=== PATIENT | female | born 1950 | race Caucasian/White ===

== ENCOUNTER 2019-12-19 09:23 | Outpatient (CLI) | payer OTHER, SELFPAY ==
--- NOTE | 2019-12-19 13:05 | PFTS_ITS ---
Date of Study:12/19/19 Date of Dictation: MECHANICS: Forced vital capacity (FVC) is reduced. Forced expiratory volume in one second (FEV1) is reduced. FEV1/FVC is reduced. FLOW VOLUME LOOP: Reduced flow at all lung volumes with significant scooping. LUNG VOLUMES: Total lung capacity (TLC) is increased. Residual volume (RV) is increased. DIFFUSING CAPACITY FOR CARBON MONOXIDE: Severely diminished. INTERPRETATION: The pulmonary function tests are consistent with very severe airflow obstruction. There is significant postbronchodilator response. Lung volumes are consistent with hyperinflation and air trapping. Gas exchange (DLCO) is severely diminished. MTDD
== END 2019-12-19 09:24 | disposition home or self-care (01) ==
LOC: RT 09:26
PROVIDERS: PCP Nurse Practitioner; Visit Provider Nurse Practitioner
DX: J44.9 Chronic obstructive pulmonary disease, unspecified (principal)
CPT/HCPCS: 94060; 94726; 94729; J7611

== ENCOUNTER → 2020-03-21 08:39 | Outpatient (BNVA) | payer OTHER, SELFPAY | PROVIDERS: PCP Nurse Practitioner; Visit Provider Internal Medicine | DX: Z11.59 Encounter for screening for other viral diseases (principal) | CPT/HCPCS: 87635 ==

== ENCOUNTER 2020-03-25 11:00 | Outpatient (CLI) | payer MEDICARE, SELFPAY | END 2020-03-25 11:01 | disposition home or self-care (01) | LOC: SLEEP 03-26 15:32 | PROVIDERS: PCP Nurse Practitioner; Visit Provider Internal Medicine Critical Care Medicine | DX: J44.9 Chronic obstructive pulmonary disease, unspecified (principal) | CPT/HCPCS: 94762 ==

== ENCOUNTER 2020-04-16 12:44 | Outpatient (CLI) | payer MEDICARE, SELFPAY ==
--- NOTE | 2020-04-16 12:49 | CT_ITS ---
WS: [id number] LDCT LUNG CANCER SCREENING HISTORY: H/O TOBACCO USE TECHNIQUE: Axial imaging performed from the apices to 1 cm below the costophrenic angles. Coronal and sagittal reformats are submitted with axial MIP series. All CT scans at [facility] use at least one of these dose optimization techniques: automated exposure control; mA and/or kV adjustment per patient size (includes targeted exams where dose is matched to clinical indication); or iterativ e reconstruction. DLP: 56.04 mGy.cm DIvol: 1.52 mGy COMPARISON: None available. Diagnostic quality: Satisfactory Lung Nodules: No pulmonary nodules or mass identified. Linear areas of scarring and fibrosis at the l noel bases. Additional subsegmental atelectasis in the RIGHT middle lobe. No endobronchial lesions. Lungs: Severe emphysema. Heart: Normal size heart. No pericardial effusion. Other findings: Small mediastinal and hilar lymph nodes. Moderate atherosclerosis aorta. Mild dilatat ion of the pulmonary artery. Small hiatal hernia. Anterior compression fracture L1, 10%. CT/CT lung screening [id number] IMPRESSION: LUNG-RADS: 1-Negative FOLLOW UP: 12 Month: Continue annual screening with LDCT OTHER FINDINGS (S MODIFIER): None.
== END 2020-04-16 12:45 | disposition home or self-care (01) ==
LOC: CT 12:45
PROVIDERS: PCP Nurse Practitioner; Visit Provider Internal Medicine Critical Care Medicine
DX: Z12.2 Encounter for screening for malignant neoplasm of respiratory organs (principal); Z87.891 Personal history of nicotine dependence
CPT/HCPCS: G0297

== ENCOUNTER 2020-08-07 07:53 | Outpatient (CLI) | payer MEDICARE, SELFPAY ==
--- NOTE | 2020-08-07 08:31 | NMCV_ITS ---
NM kodi perf SPECT r/s* [id number] Katerni Andrade Age: 70 Gender: F : 1950 Exam Date: 08/07/2020 08:31 Ordering Phys: Ciro Galvan MD Technologist: ESAU Reyes Exam Location: [facility] Indications: Chest pain STRESS TEST Please see separate stress test report in [facility] for full findings IMAGE PROTOCOL Rest/Stress 1 Lexiscan Day Radiopharmaceutical Dose (mCi) Administration Site Administered by Rest: Tc-99m 10.9 IV ESAU Reyes Sestamibi Stress:Tc-99m 32.5 IV ESAU Reyes Sestamibi Rest: 07-Aug-2020 60 Discovery 630 Stress: 07-Aug-2020 45 Discovery 630 0.4mg Lexiscan. Images obtained in supine and prone position. SPECT RESULTS Technical Quality: Good Raw Data Analysis: Normal Image Corrections: No attenuation or motion correction applied Summed Stress Score: 0 Summed Rest Score: 4 Summed Difference Score: 0 PERFUSION FINDINGS Large area of decreased tracer uptake noted in basal to distal anterior, basal to mid anteroseptal and basal inferoseptal wall on the rest images which improved over stress images suggestive of artifact. FUNCTIONAL RESULTS (calculated via Gated SPECT) Stress Image LV EF (%): 65 Stress EDV (mL):62 TID: 0.97 Stress ESV (mL):22 Rest Image LV EF (%): 65 FUNCTIONAL FINDINGS: There is normal left ventricular systolic function. IMPRESSIONS Myocardial perfusion imaging is not suggestive of ischemia. EKG segment will be documented separately. Delgado Howell MD (Electronically Signed) Final Date: 07 August 2020 17:13 S
--- NOTE | 2020-08-07 08:31 | ECG_ITS ---
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 The perfusion scan will be documented separately. DATA: Baseline heart rate was 82 beats per minute. Baseline blood pressure was 167/77 millimeters of mercury. Target heart rate was 150. Maximum heart rate achieved was 90. which was 60 % of the predicted target heart rate. Maximum blood pressure was 167/81 millimeters of mercury. The reason for ending the test was completion of the protocol. The patient did not experience any symptoms. ELECTROCARDIOGRAM: BASELINE: Sinus rhythm. Normal axis. Old anterior wall myocardial infarction EXERCISE: After Lexiscan injection, no ST-T changes suggestive of ischemic noted. No arrhythmia noted. CONCLUSION: Please note due to baseline abnormality of the EKG specificity and sensitivity of the EKG portion of LexiScan MIBI stress test will be low 1. EKG not suggestive of ischemia 2. Lexiscan injection unremarkable. 3. Perfusion scan will be documented separately. Electronically Signed On 08-07-2020 18:05:50 TRANSFORMER TESTER by MATTEO RASHID [email or web address]
[2020-08-07 08:32] VITALS: BMI 20.9
[2020-08-07] MEDS: regadenoson 0.4 Mg/5 ml Syringe IVP (09:56)
[2020-08-07] MEDS: aminophylline 25 mg/mL SDV 10 mL IVP (10:08)
[2020-08-07 10:23] VITALS: BP 142/77; PULSE 72
== END 2020-08-07 07:54 | disposition home or self-care (01) ==
PROVIDERS: PCP Nurse Practitioner; Visit Provider Internal Medicine Critical Care Medicine
DX: R07.9 Chest pain, unspecified (principal)
CPT/HCPCS: 78452; 93017; 96374; A9500; J0280; J2785

== ENCOUNTER 2021-06-17 09:51 | Outpatient (CLI) | payer MEDICARE, SELFPAY ==
--- NOTE | 2021-06-17 | CT_ITS ---
Guided Bronchoscopy Planning CT images; total exam DLP: 1169.33 mGy-cm MTDD
== END 2021-06-17 09:52 | disposition home or self-care (01) ==
LOC: CT 09:53
PROVIDERS: PCP Nurse Practitioner; Visit Provider Internal Medicine Critical Care Medicine
DX: J44.9 Chronic obstructive pulmonary disease, unspecified (principal)
CPT/HCPCS: 71250

== ENCOUNTER 2022-01-12 08:12 | Outpatient (CLI) | payer MEDICARE, SELFPAY | END 2022-01-12 08:13 | disposition home or self-care (01) | LOC: RT 08:13 | PROVIDERS: PCP Nurse Practitioner; Visit Provider Internal Medicine Critical Care Medicine | DX: J44.9 Chronic obstructive pulmonary disease, unspecified (principal) | CPT/HCPCS: J7614 ==

== ENCOUNTER 2022-01-12 08:12 | Outpatient (CLI) | payer MEDICARE, SELFPAY ==
--- NOTE | 2022-01-12 08:18 | CT_ITS ---
WS: [id number] CT ABDOMEN PELVIS TECHNIQUE: Noncontrast CT of the abdomen and pelvis with coronal and sagittal reformatted images. CLINICAL INFORMATION: LEFT LOWER QUADRANT PAIN COMPARISON: None. DLP: 748.[address] scans at [facility] use at least one of these dose optimization techniques: automated e xposure control; mA and/or kV adjustment per patient size (includes targeted exams where dose is matc hed to clinical indication); or iterative reconstruction. FINDINGS: Noncontrast liver is normal. Normal noncontrast spleen. Advanced emphysematous changes in the lung ba ses. Normal GE junction. Adrenal glands are normal. Normal caliber abdominal aorta. Moderate calcific ation. No hydronephrosis in either kidney. Small RIGHT renal cyst. No obstructing renal or ureteral calculi. Calcified ovarian mass or exophytic fibroid measuring 3.1 x 3.0 cm in the RIGHT proximal adnexa. Sma ll calcified fundal fibroid measuring 10 mm. No free fluid in the abdomen or pelvis. No evidence of high-grade small or large bowel obstruction. S light retrolisthesis L3 on L4. Disc space narrowing worse L4-L5 and L5-S1. Mild to moderate central c anal stenosis L2-L3 and L3-L4. Chronic appearing compression superior endplate L1 with mild retropuls ion posterior superior cortex with mild to moderate central canal stenosis. CT/CT abdomen pelvis wo con [id number] IMPRESSION: 1. No hydronephrosis in either kidney. No obstructing renal or ureteral calcul i. 2. Calcified RIGHT proximal adnexal lesion measuring 3.1 x 3.0 cm. This may re present exophytic fibroid versus calcified RIGHT ovarian mass. This can be furt her evaluated with ultrasound. 3. Additional small calcified fundal fibroid measuring 10 mm. 4. Normal sigmoid colon. A few diverticuli. No evidence of acute diverticuliti s. 5. Chronic appearing mild compression superior endplate L1 with mild retropuls ion posterior superior cortex with mild to moderate central canal stenosis. 6. Moderate central canal stenosis L2-L3 and L3-L4 due to disc bulging with f acet arthropathy and slight retrolisthesis. Lumbar spine can be further evaluat ed with MRI.
[2022-01-12] MEDS: barium sulfate 450 mL Oral Susp PO (10:23)
--- NOTE | 2022-01-12 10:55 | PFTS_ITS ---
Date of Study:01/12/22 Date of Dictation: 01/16/22 MECHANICS: Postbronchodilator forced vital capacity (FVC) is reduced. Postbronchodilator forced expiratory volume in one second (FEV1) is severely reduced. FEV1/FVC is reduced. There is no significant response to bronchodilator FLOW VOLUME LOOP: Severe sloping of expiratory limb suggestive of severe airflow obstruction. LUNG VOLUMES: Total lung capacity (TLC) is normal. Residual volume (RV) is increased suggesting air trapping. DIFFUSING CAPACITY FOR CARBON MONOXIDE: severely reduced. INTERPRETATION: The Spirometry showed severe airflow obstruction. There is no significant response to bronchodilators. Lung volumes suggestive of moderate air trapping. There is severe gas transfer defect. Findings consistent with entities like emphysema. Clinical correlation recommended. MTDD
== END 2022-01-12 08:13 | disposition home or self-care (01) ==
LOC: RAD 08:13
PROVIDERS: PCP Nurse Practitioner; Visit Provider Nurse Practitioner Family
DX: R10.32 Left lower quadrant pain (principal); D25.9 Leiomyoma of uterus, unspecified; M48.061 Spinal stenosis, lumbar region without neurogenic claudication
CPT/HCPCS: 74176; 94060; 94618; 94726; 94729

== ENCOUNTER → 2022-08-23 14:49 | Outpatient (BNVA) | payer MEDICARE, SELFPAY | PROVIDERS: PCP Nurse Practitioner; Visit Provider Internal Medicine Pulmonary Disease | DX: J44.9 Chronic obstructive pulmonary disease, unspecified (principal); J96.11 Chronic respiratory failure with hypoxia; G47.33 Obstructive sleep apnea (adult) (pediatric); F41.9 Anxiety disorder, unspecified; Z87.891 Personal history of nicotine dependence; Z99.81 Dependence on supplemental oxygen | CPT/HCPCS: 99214 ==

== ENCOUNTER 2022-09-20 12:43 | Outpatient (CLI) | payer MEDICARE, SELFPAY ==
--- NOTE | 2022-09-20 13:00 | CT_ITS ---
WS: [id number] LDCT LUNG CANCER SCREENING HISTORY: lung screening TECHNIQUE: Axial imaging performed from the apices to 1 cm below the costophrenic angles. Coronal and sagittal reformats are submitted with axial MIP series. All CT scans at [facility] use at least one of these dose optimization techniques: automated exposure control; mA and/or kV adjustment per patient size (includes targeted exams where dose is matched to clinical indication); or iterativ e reconstruction. DLP: 85.30 mGy.cm DIvol: Mean CTDIvol: 1.60 (mGy) COMPARISON: 04/16/2020. Diagnostic quality: Satisfactory Lungs: Severe chronic emphysema. Very small stable nodules at the RIGHT lung base. There are no new m asses or nodules identified. No pleural effusions. Heart: Normal size heart with no pericardial effusion. A few scattered coronary artery calcifications . Other findings: Moderate atherosclerosis aorta. No aneurysm. There are a few small benign-appearing l ymph nodes in the mediastinum and hilum. Mild enlargement of the pulmonary artery. No adrenal mass. M ild stable compression deformity at L1. CT/CT lung screening [id number] IMPRESSION: LUNG-RADS: 1-Negative FOLLOW UP: 12 Month: Continue annual screening with LDCT OTHER FINDINGS (S MODIFIER): None.
== END 2022-09-20 12:44 | disposition home or self-care (01) ==
LOC: RAD 12:45
PROVIDERS: PCP Nurse Practitioner; Visit Provider Internal Medicine Pulmonary Disease
DX: Z12.2 Encounter for screening for malignant neoplasm of respiratory organs (principal); Z87.891 Personal history of nicotine dependence; J44.9 Chronic obstructive pulmonary disease, unspecified
CPT/HCPCS: 71271

== ENCOUNTER → 2023-09-23 08:56 | Outpatient (BNVA) | payer MEDICARE, SELFPAY | PROVIDERS: PCP Family Medicine; Visit Provider Internal Medicine Pulmonary Disease | DX: J43.2 Centrilobular emphysema (principal); J44.9 Chronic obstructive pulmonary disease, unspecified; J96.11 Chronic respiratory failure with hypoxia; G47.33 Obstructive sleep apnea (adult) (pediatric); Z12.2 Encounter for screening for malignant neoplasm of respiratory organs; Z87.891 Personal history of nicotine dependence | CPT/HCPCS: 99214 ==

== ENCOUNTER 2023-11-14 13:34 | Outpatient (CLI) | payer MEDICARE, SELFPAY ==
--- NOTE | 2023-11-14 13:40 | CT_ITS ---
WS: [id number] LDCT LUNG CANCER SCREENING HISTORY: HX OF TOBACCO USE TECHNIQUE: Axial imaging performed from the apices to 1 cm below the costophrenic angles. Coronal and sagittal reformats are submitted with axial MIP series. All CT scans at [facility] use at least one of these dose optimization techniques: automated exposure control; mA and/or kV adjustment per patient size (includes targeted exams where dose is matched to clinical indication); or iterativ e reconstruction. DLP: 45.30 mGy.cm DIvol: Mean CTDIvol: 0.70 (mGy) COMPARISON: 09/20/2022 Diagnostic quality: Satisfactory Lungs: Severe chronic emphysema. Small micronodules and benign calcified granuloma noted within each lung. There are no new masses or enlarging mass or pneumonia. Mild central bronchiectasis in the uppe r and lower lung pablo. No pneumonia. Heart: Normal size heart with no pericardial effusion.. Other findings: Extensive atherosclerotic plaque thoracic aorta. Small mediastinal and hilar lymph no ainsley. Lymph nodes are similar to the prior study. No adrenal mass. Stable compression deformity involv ing the posterior superior endplate of L1. Very slight retropulsion of the posterior fragment is unch anged. CT/CT lung screening [id number] IMPRESSION: LUNG-RADS: 2-Benign Appearance or Behavior FOLLOW UP: 12 Month: Continue annual screening with LDCT OTHER FINDINGS (S MODIFIER): None.
== END 2023-11-14 13:35 | disposition home or self-care (01) ==
LOC: RAD 13:37
PROVIDERS: PCP Family Medicine; Visit Provider Nurse Practitioner Family
DX: Z12.2 Encounter for screening for malignant neoplasm of respiratory organs (principal); Z87.891 Personal history of nicotine dependence; J43.9 Emphysema, unspecified; I70.0 Atherosclerosis of aorta
CPT/HCPCS: 71271